=== PATIENT | male | born 1985 | race Caucasian/White ===

== ENCOUNTER 2023-09-24 10:20 | Emergency (ER) | payer MEDICARE, SELFPAY ==
[2023-09-24 12:30] LABS: SARS-CoV-2 NAA Rapid Test Not Detected (NotDetected)
== END 2023-09-24 13:23 | disposition home or self-care (01) ==
LOC: ERS 10:20
DX: J18.9 Pneumonia, unspecified organism (principal); F17.210 Nicotine dependence, cigarettes, uncomplicated
CPT/HCPCS: 71045

== ENCOUNTER 2023-11-01 18:50 | Emergency (ER) | payer BC, SELFPAY ==
[2023-11-01] MEDS ORDERED: Ketorolac Tromethamine 30 MG (1 mL) VIAL ONE (22:10)
== END 2023-11-01 23:34 | disposition home or self-care (01) ==
LOC: ERS 18:50
DX: R29.898 Other symptoms and signs involving the musculoskeletal system (principal); F17.210 Nicotine dependence, cigarettes, uncomplicated; F17.290 Nicotine dependence, other tobacco product, uncomplicated
CPT/HCPCS: 71045; 96372; J1885